=== PATIENT | male | born 1980 | race Caucasian/White ===

== ENCOUNTER 2023-12-10 18:00 | Emergency (ER) | payer MEDICAID, OTHER ==
--- NOTE | 2023-12-10 18:51 | ED Physician Documentation ---
PD HPI UPPER EXT INJURY - Stated complaint Stated Complaint: RT HAND LAC - Chief complaint Chief Complaint: Laceration - History obtained from History obtained from: Patient - History of Present Illness Location: Right, Hand Pain level max: 3 Pain level now: 3 Improved by: Rest, Other (pressure) Worsened by: Moving, Palpating Associated symptoms: No: Weakness, Numbness, Tingling, Swelling Contributing factors: No: Anticoagulated, Prior ortho surgery Recently seen: Not recently seen - Additonal information Additional information: Patient is a 43-year-old male who presents to the emergency department for laceration to the right fourth digit while washing dishes tonight and a dish b roke. Unknown last tetanus shot. Patient is right-handed. No numbness or tingling. Not on blood thinners. Better with pressure, nothing makes it worse. Review of Systems Constitutional: denies: Fever Neurologic: denies: Head injury PD PAST MEDICAL HISTORY - Past Medical History Past Medical History: Yes Psych: Bipolar disorder - Past Surgical History Past Surgical History: No - Present Medications Home Medications: Ambulatory Orders Medication Instructions Recorded Confirmed ARIPiprazole [Abilify] 30 mg PO DAILY 12/10/23 12/10/23 [place] Carbonate 300 mg PO DAILY 12/10/23 12/10/23 lamoTRIgine [Lamotrigine Odt] 100 mg PO DAILY 12/10/23 12/10/23 - Allergies Allergies/Adverse Reactions: Allergies Allergy/AdvReac Type Severity Reaction Status Date / Time No Known Drug Allergies Allergy Verified 12/10/23 18:21 - Social History Does the pt smoke?: Yes Smoking Status: Current every day smoker Does the pt drink ETOH?: Yes Substance Use and Type: Marijuana PD ED PE NORMAL - Vitals Vital signs reviewed: Yes - General General: Alert and oriented X 3, No acute distress - HEENT HEENT: Moist mucous membranes - Derm Derm: Warm and dry - Neuro Neuro: Alert and oriented X 3 - Psych Psych: Normal mood, Normal affect PD ED PE EXPANDED - Extremities LIVIER UE/Hands Visual: 1 - laceration (3cm, curved. NVI. no nail injury, FROM of the finger. tested vs resistance. no tendon injury) Results - Vitals Vitals: Vital Signs - 24 hr 12/10/23 12/10/23 18:16 19:15 Temperature 36.0 C L Heart Rate 86 80 Respiratory 18 15 Rate Blood Pressure 98/47 L 107/65 O2 Saturation 97 98 Oxygen O2 Source Room air Procedures - Laceration (location) R 4th digit Length in cm: 3 Wound type: Curved, Into subcut fat, Clean Neurovascular status: Sensory intact, Motor intact, Vascular intact Tendon involvement: Tendon intact Anesthesia: Lidocaine 1% Wound preparation: Irrigated copiously NS, Wound explored, To the base Skin layer closure: Nylon, Interrupted, Size #-0 - enter number (4), Sutures - enter # (5) Other: Patient tolerated well, No complications, Neurovascular intact, Dressing applied, Tetanus booster given PD Medical Decision Making - ED course Complexity details: considered differential, d/w patient ED course: 43-year-old male with a laceration to the right fourth digit, palmar aspect, DIP joint. No tendon injury. Laceration repaired. Tolerated well. Neurovascular intact. Tdap given. Also noted to have a slight abrasion to the webspace between the index and middle finger. A small amount of Dermabond was applied here. This is approximately 0.2 cm in length. There is also a small abrasion on the thumb, but this does not need any intervention. Warnings of infection and instructions on wound care given at bedside. Also counseled on how to minimize scarring. Patient counseled regarding signs and symptoms for which I believe and urgent re-evaluation would be necessary. Patient with good understanding of and agreement to plan and is comfortable going home at this time This document was made in part using voice recognition software. While efforts are made to proofread this document, sound alike and grammatical errors may occur. Departure - Departure Disposition: 01 Home, Self Care Clinical Impression: Finger laceration Qualifiers: Encounter type: initial encounter Finger: ring finger Damage to nail status: without damage Foreign body presence: without foreign body Laterality: right Qualified Code(s): S61.214A - Laceration without foreign body of right ring finger without damage to nail, initial encounter Condition: Good Instructions: ED Laceration Hand Follow-Up: your,doctor in approx 10 days for suture removal [Other] Comments: Your sutures should be removed in approximately 10 days. This can be done with your doctor, one of the walk-in clinics or here. Keep the wound clean. Return if you notice redness, swelling or drainage from the wound. You were given a tetanus shot tonight as well. You can wear the splint as needed for comfort but no longer than 2 to 3 days. Forms: PCP List Discharge Date/Time: 12/10/23 19:16
[2023-12-10] MEDS: TETANUS/DIPHTHERIA/PERTUSSIS 0.5 ML SYRINGE IM ONE (19:03)
[2023-12-10 19:21] VITALS: BP 107/65; O2SAT 98
== END 2023-12-10 19:16 | disposition home or self-care (01) ==
LOC: ED 18:00
DX: S61.214A Laceration without foreign body of right ring finger without damage to nail, initial encounter (principal); S60.511A Abrasion of right hand, initial encounter; S60.311A Abrasion of right thumb, initial encounter; W25.XXXA Contact with sharp glass, initial encounter; Y93.G1 Activity, food preparation and clean up; F17.200 Nicotine dependence, unspecified, uncomplicated
CPT/HCPCS: 12002; 90471; 99283

== ENCOUNTER 2023-12-20 08:18 | Emergency (ER) | payer MEDICAID ==
[2023-12-20 08:35] VITALS: BP 118/69; O2SAT 100
--- NOTE | 2023-12-20 09:08 | ED Physician Documentation ---
PD HPI WOUND RECHECK - Stated complaint Stated Complaint: STITCH REMOVAL - Chief complaint Chief Complaint: General - Histroy obtained from History obtained from: Patient - Additional information Additional information: Patient is a 43-year-old male presenting for suture removal from his right ring finger. Patient sustained a laceration 10 days ago and had [address] Denies any concerns for infection. Review of Systems Constitutional: denies: Fever Skin: reports: Laceration (s). denies: Rash PD PAST MEDICAL HISTORY - Past Medical History Past Medical History: Yes Psych: Bipolar disorder - Past Surgical History Past Surgical History: No - Present Medications Home Medications: Ambulatory Orders Medication Instructions Recorded Confirmed ARIPiprazole [Abilify] 30 mg PO DAILY 12/10/23 12/10/23 [place] Carbonate 300 mg PO DAILY 12/10/23 12/10/23 lamoTRIgine [Lamotrigine Odt] 100 mg PO DAILY 12/10/23 12/10/23 - Allergies Allergies/Adverse Reactions: Allergies Allergy/AdvReac Type Severity Reaction Status Date / Time No Known Drug Allergies Allergy Verified 12/20/23 08:28 - Social History Does the pt smoke?: Yes Smoking Status: Current every day smoker Does the pt drink ETOH?: Yes Does the pt have substance abuse?: No - POLST Patient has POLST: No PD ED PE NORMAL - General General: Alert and oriented X 3, No acute distress, Well developed/nourished - Respiratory Respiratory: No respiratory distress - Derm Derm: Warm and dry - Extremities Extremities: Other (Well-healing laceration to distal right fourth digit with [address] These were removed in their entirety.) Results - Vitals Vitals: Vital Signs - 24 hr 12/20/23 08:26 Temperature 36.4 C L Heart Rate 81 Respiratory 20 Rate Blood Pressure 118/69 O2 Saturation 100 Oxygen O2 Source Room air PD Medical Decision Making - ED course ED course: Patient presenting for suture removal. 5 sutures removed in their entirety from right fourth digit laceration. Wound is well-healing. No signs of infection. Patient counseled on concerning symptoms to return for. Departure - Departure Disposition: 01 Home, Self Care Clinical Impression: Visit for suture removal Condition: Stable Instructions: ED Wound Check Sutr Remove No Infec Comments: 5 sutures were removed from your finger laceration. Please continue to keep the area clean and dry. Return to the ER with any concerns for infection. Forms: PCP List Discharge Date/Time: 12/20/23 09:27
== END 2023-12-20 09:27 | disposition home or self-care (01) ==
LOC: ED 08:18
DX: S61.214D Laceration without foreign body of right ring finger without damage to nail, subsequent encounter (principal); W45.8XXD Other foreign body or object entering through skin, subsequent encounter
CPT/HCPCS: 99281